=== PATIENT | female | born 2000 | race Two or more races ===

== ENCOUNTER 2020-04-04 15:14 | Emergency (ER) | payer SELFPAY ==
[~2020-04-04] VITALS: Ht 152.4 cm; Wt 45.4 kg
[2020-04-04 15:23] VITALS: BP 123/69
== END 2020-04-04 16:42 | disposition home or self-care (01) ==
LOC: ER 15:14
DX: J02.9 Acute pharyngitis, unspecified (principal); Z20.828 Contact with and (suspected) exposure to other viral communicable diseases; Z88.1 Allergy status to other antibiotic agents
CPT/HCPCS: 36415; 87426

== ENCOUNTER 2020-04-07 11:40 | Emergency (ER) | payer SELFPAY ==
[~2020-04-07] VITALS: Ht 162.6 cm; Wt 42.6 kg
[2020-04-07 14:40] VITALS: BP 110/79
== END 2020-04-07 14:46 | disposition home or self-care (01) ==
LOC: ER 11:40
DX: J03.00 Acute streptococcal tonsillitis, unspecified (principal); Z88.1 Allergy status to other antibiotic agents

== ENCOUNTER 2022-02-20 08:20 | Emergency (ER) | payer MEDICAID, OTHER ==
[~2022-02-20] VITALS: Ht 152.4 cm; Wt 36.6 kg
[2022-02-20 08:56] LABS: Basophils # (auto) 0 10 ^3/uL (0-0.2); Basophils % (auto) 0.4 % (0.0-2.0); Eosinophils # (auto) 0.1 10 ^3/uL (0-0.8); Eosinophils % (auto) 0.7 % (0.0-7.0); Hemoglobin 14.6 g/dL (12.2-16.2); Lymphocytes # (auto) 1.4 10 ^3/uL (0.4-5.4); Lymphocytes % (auto) 18.3 % (10.0-50.0); Mean Corpuscular Hemoglobin 30.9 pg (28.0-32.0); Mean Corpuscular Volume 90.9 fL (80.0-100.0); Monocytes # (auto) 0.6 10 ^3/uL (0-1.3); Monocytes % (auto) 7.3 % (0.0-12.0); Neutrophils # (auto) 5.8 10 ^3/uL (1.6-8.6); Neutrophils % (auto) 73.3 % (37.0-80.0); Nucleated Red Blood Cells % 0.1 %; Red Blood Cells 4.73 10^6/uL (4.0-5.20); Red Cell Distribution Width 14.3 % (11.8-14.3); White Blood Cell 7.9 10^3/uL (4.4-10.8)
[2022-02-20 09:07] LABS: Albumin 3.9 g/dL (3.4-5.0); Calcium 9.2 mg/dL (8.5-10.1)
[2022-02-20 09:11] LABS: BUN/Creatinine Ratio 12.7; Bilirubin, Total 0.6 mg/dL (0.2-1.0); Total Protein 7.7 g/dL (6.4-8.2)
[2022-02-20 10:21] LABS: Urine Bacteria FEW /hpf (None Seen); Urine Blood TRACE /uL (Negative); Urine Mucus FEW (None Seen); Urine Specific Gravity 1.028 (1.001-1.035); Urine WBC 12 /hpf (0 - 5)
[2022-02-20] MEDS ORDERED: PANTOPRAZOLE 40 MG/10 ML VIAL INJ IV ONE (11:45)
[2022-02-20] MEDS ORDERED: PROCHLORPERAZINE EDISYLATE 5 MG/ML 2ML VIAL IV ONE (11:45)
[2022-02-20] MEDS ORDERED: SODIUM CHLORIDE 0.9% 1,000 ML IVB ONE (11:45)
[2022-02-20 12:19] LABS: Amylase 41 U/L (25-115); Lipase 89 U/L (73-393)
[2022-02-20] MEDS ORDERED: ONDA-144 PO (12:38)
[2022-02-20] MEDS ORDERED: CIPR-173 PO (12:38)
[2022-02-20] MEDS ORDERED: cefTRIAXone 1GM/50ML D5W 50 ML IV ONE (12:45)
[2022-02-20 15:45] VITALS: BP 114/51
== END 2022-02-20 15:46 | disposition home or self-care (01) ==
LOC: ER 08:20
DX: E86.0 Dehydration (principal); R19.7 Diarrhea, unspecified; F12.10 Cannabis abuse, uncomplicated; Z88.1 Allergy status to other antibiotic agents; Z20.822 Contact with and (suspected) exposure to COVID-19
CPT/HCPCS: 36415; 80053; 81001; 82150; 83690; 85025; 87426; 96365; 96375; 99284; C9113; J0696; J0780